=== PATIENT | male | born 1945 | race Two or more races ===

== ENCOUNTER 2019-12-17 07:31 | Day surgery (SDC) | payer MEDICARE ==
[2019-12-12 08:09] LABS: BASOPHILS % (AUTO) 1.3 % (0.0-2.0); HEMOGLOBIN 15.2 G/DL (14.2-18.0); LYMPHOCYTES % (AUTO) 30.6 % (20.0-45.0); MEAN CORPUSCULAR VOLUME 87 FL (80-99); MONOCYTES % (AUTO) 9.7 % (1.0-10.0); NEUTROPHILS % (AUTO) 53.4 % (45.0-75.0); PLATELET COUNT 219 K/UL (150-450); RED BLOOD COUNT 5.06 M/UL (4.70-6.10); RED CELL DISTRIBUTION WIDTH 11.5 % (11.6-14.8); WHITE BLOOD COUNT 7.3 K/UL (4.8-10.8)
[2019-12-12 08:19] LABS: ANION GAP 11 mmol/L (5-15); BLOOD UREA NITROGEN 11 mg/dL (7-18); CALCIUM 8.8 MG/DL (8.5-10.1); CARBON DIOXIDE 27 MMOL/L (21-32); CHLORIDE 108 MMOL/L (98-107); CREATININE 0.8 MG/DL (0.55-1.30); POTASSIUM 4.3 MMOL/L (3.5-5.1); SODIUM 146 MMOL/L (136-145)
--- NOTE | 2019-12-12 09:57 | Opthalmology H&P ---
Ophthalmology H&P H&P Chief Complaint: decreased vision in left eye HPI Vision Affects Ability to: read Past Ocular History: retinal problems - PDR/ME OU, other - Pterygium OS HPI Narrative Blurry vision Exam Visual Acuity: OD 20/50 OS 20/125 Tension: OD 11 OS 11 Eye Exam: normal OU: palpebral fissure-width, marginal reflex distance, levator function, corneas, anterior chambers, fundus exam; findings: external exam - Pterygium OS, lens - NS/CC Cataracts OU Assessment/Plan Treatment Plan: cataract extraction w/ lens implant Goals of Treatment: improvement of vision, enhance quality of life Attestation Attestation The risks and benefits of the surgery as well as alternative procedures were explained to the patient in detail. Satinder Plummer MD December 12, 2019 09:57
--- NOTE | 2019-12-12 09:59 | Pre-Procedure Note/Attestation ---
Pre-Procedure Note/Attestation Complete Prior to Procedure Planned Procedure: left Procedure Narrative: Cataract extraction with IOL implant left eye Indications for Procedure Pre-Operative Diagnosis: Nuclear sclerotic/ cortical cataract left eye Attestation I attest that I discussed the nature of the procedure; its benefits; risks and complications; and alternatives (and the risks and benefits of such alternatives ), prior to the procedure, with the patient (or the patient's legal service center representative). I attest that, if there was a reasonable possibility of needing a blood transfusion, the patient (or the patient's legal service center representative) was given the [facility] standardized written summary, pursuant to the [address] Blood Safety Act ([place] Health and Safety Code # 1645, as amended). I attest that I re-evaluated the patient just prior to the surgery and that there has been no change in the patient's H&P, except as documented below: Satinder Plummer MD December 12, 2019 09:59
--- NOTE | 2019-12-12 16:30 | Pre-op HX & Phy Repo 2 SIG ---
DATE OF ADMISSION: 12/17/2019 PRESURGICAL INTERNAL MEDICINE HISTORY AND PHYSICAL ANTICIPATED DATE OF SURGERY: Surgery is scheduled for Tuesday, December 17, 2019. SURGEON: Satinder Plummer MD. PROCEDURE: Cataract extraction of left eye with intraocular lens implant. The patient was evaluated on December 12, 2019, at Outpatient Procedure, [facility]. PAST MEDICAL HISTORY AND REVIEW OF SYSTEMS: Remarkable for hypertension, type 2 diabetes. Denies history of chest pain, palpitation, or heart attack. No history of stroke or seizures. Denies history of respiratory problem, asthma, or bronchitis. Denies history of GI problem. No ulcer or hernia. No history of hepatitis. Denies history of renal failure or prostate problem. No history of anemia or thyroid problem. PAST SURGICAL HISTORY: Right shoulder fracture traumatic. FAMILY HISTORY: Father from heart attack and mother of complication of bowel obstruction. ALLERGIES: Not known. PRESENT MEDICATIONS: Glipizide, metformin, Giardia, atorvastatin, baby aspirin, and blood pressure medication unable to produce. HABITS: Denies history of smoke. Alcohol occasional. No street drugs. PHYSICAL EXAMINATION: GENERAL: Alert, well-developed, well-nourished male in his 70s, in no acute distress. VITAL SIGNS: Blood pressure 147/85, temperature 97.5, heart rate is 88, O2 saturation 98% on room air. SKIN: Clear, warm. No diaphoresis or rashes. LYMPHATICS: Lymph nodes not enlarged. HEENT: Head normocephalic and atraumatic. Ears, clear, no discharge. Nose clear, no discharge. Mouth, clear and moist, no dentures. Eyes, full description per Dr. Satinder Plummer. NECK: Supple. No jugular venous distention. Carotids artery +2. Trachea midline. CHEST: No deformity or asymmetry. LUNGS: Clear to auscultation and percussion. No rales or rhonchi. HEART: Sinus. No ectopy. No murmur. No S3, S4. ABDOMEN: Soft, benign. Liver and spleen not enlarged. No rebound. EXTREMITIES: No edema. No varicose vein. No deformity. NERVOUS SYSTEM: No asymmetry. II through XII in normal limit. No nystagmus. 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 LABORATORY WORK: CBC in normal limit. Blood sugar 153. BUN and creatinine normal. IMPRESSION: 1. Nuclear sclerotic cataract, left eye. 2. Diabetes mellitus, type 2. 3. Hypertension, controlled. PLAN: Cataract extraction of left eye with intraocular lens implant per Dr. Satinder Plummer. CONCLUSION: The patient is a 74-year-old male who has history of hypertension and type 2 diabetes. 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 The patient is asymptomatic. The patient is to be NPO after midnight, Tuesday, December 17, 2019. The patient's condition optimized for surgery. Thank you very much, Dr. Plummer, for privilege to participate in presurgical care of this interesting patient. Francisco Velasco M.D. DR: Sean JOB#: [id number] CC:
[~2019-12-17] VITALS: Ht 170.2 cm; Wt 81.6 kg
[2019-12-17] VITALS (7 sets, daily range): BP systolic 133–154; BP diastolic 70–88
[~2019-12-17 07:31] MED LIST: ASPIR 8181 MG ORAL; ATORVASTATIN CA20 MG ORAL; Akten 3.5% 1ml Btl LEFT EYE ONE; BSS 15ml BTL ONE; BSS 500ml btl ONE; Bupivacaine 0.75% 30ml vial INJ ONE; Carbachol 0.01% Op Soln 1.5ml vial ONE; Dexamethasone 4mg/ml vial ONE; EPINEPHrine 1mg/1ml Amp ONE; GLIPIZIDE ER10 MG PO; Lidocaine 2% MPF 5ml Vial INJ ONE; Lidocaine 4% Amp 5ml ONE; METFORMIN HCL1000 M1 ORAL; Pilocarpine 1% Opth 15ml Soln ONE; Polysporin Oint 15gm TOPIC ONE; Povidone-Iodine 5% opth solution ONE; Proparacaine 0.5% Opth Soln 15ml LEFT EYE ONE; Sodium Hyaluronate 10 mg/ml 0.85ml ONE; Tetracaine 0.5% Opth 4ml Soln LEFT EYE ONE; acetaZOLAMIDE 500mg Inj ONE; jardiance PO; prednisoLONE acetate 1% Opth Susp 1ml ONE
[2019-12-17] MEDS: Tropicamide 1% Opth 15ml Soln LEFT EYE SCH ×3 (07:55→08:10)
[2019-12-17] MEDS: Cyclopentolate 1% Opth Sol 2ml LEFT EYE SCH ×3 (07:57→08:10)
[2019-12-17] MEDS: Diclofenac Sod 0.1% Op Soln LEFT EYE SCH ×2 (07:57→08:06)
[2019-12-17] MEDS: Phenylephrine 10% Opth Soln 5ml LEFT EYE SCH ×3 (07:57→08:10)
[2019-12-17] MEDS: Tobramycin Op Soln 0.3% 5ml LEFT EYE SCH ×3 (07:57→08:10)
[2019-12-17] MEDS ORDERED: LR 1000ml 1,000 ML IVLG SCH (08:28)
--- NOTE | 2019-12-17 08:28 | Anethesia Preoperative Eval ---
Anesthesia Pre-op PMH/ROS General Date of Evaluation: December 17, 2019 Time of Evaluation: 08:25 Anesthesiologist: Awais ASA Score: ASA 3 Mallampati Score Class I : Soft palate, uvula, fauces, pillars visible Class II: Soft palate, uvula, fauces visible Class III: Soft palate, base of uvula visible Class IV: Only hard plate visible Mallampati Classification: Class II Surgeon: Kavitha Diagnosis: L eye cataract Surgical Procedure: Cataract extraction Anesthesia History: none Family History: no anesthesia problems Allergies: Coded Allergies: No Known Allergies (Unverified , 12/12/19) Medications: see eMAR Patient NPO?: Yes Past Medical History Cardiovascular: Reports: HTN; Denies: CAD, [place], valve dz, arrhythmia, other Pulmonary: Denies: asthma, COPD, KELSEY, other Gastrointestinal/Genitourinary: Reports: GERD; Denies: CRI, ESRD, other Neurologic/Psychiatric: Denies: dementia, CVA, depression/anxiety, TIA, other Endocrine: Reports: DM - stable on pills; Denies: hypothyroidism, steroids, other HEENT: Reports: cataract (L), cataract (R), glaucoma Hematology/Immune: Denies: anemia, DVT, bleeding disorder, other Musculoskeletal/Integumentary: Denies: OA, RA, DJD, DDD, edema, other PMH Narrative: as above PSxH Narrative: Shoulder Sx Anesthesia Pre-op Phys. Exam Physician Exam Last Vital Signs Date Time Temp Pulse Resp B/P (MAP) Pulse Ox O2 Delivery O2 Flow Rate FiO2 12/17/19 08:03 97.4 86 20 141/88 95 Room Air Constitutional: NAD Neurologic: CN 2-12 intact Cardiovascular: RRR, no M/R/G Respiratory: CTA Gastrointestinal: S/NT/ND Airway Exam Mallampati Score: Class II MO: limited Neck: stiff ROM: limited Teeth: missing Dentures: no upper, no lower Anesthesia Pre-op A/P Labs see chart Studies Pre-op Studies: EKG - SR Risk Assessment & Plan Assessment: ASA 3 Plan: MAC Status Change Before Surgery: No Pre-Antibiotics Drug: none Romaine Underwood MD December 17, 2019 08:28
[2019-12-17] MEDS ORDERED: fentaNYL 100 mcg/2 mL IV PRN (08:30)
[2019-12-17] MEDS ORDERED: EPINEPHrine 1mg/1ml Amp ONE (08:57)
[2019-12-17] MEDS ORDERED: BSS 15ml BTL ONE (08:58)
[2019-12-17] MEDS ORDERED: Sodium Hyaluronate 10 mg/ml 0.85ml ONE (08:58)
[2019-12-17] MEDS ORDERED: Povidone-Iodine 5% opth solution ONE (08:58)
[2019-12-17] MEDS ORDERED: BSS 500ml btl ONE (08:58)
[2019-12-17] MEDS ORDERED: Sterile Water Irrig 1000ml IRRIG ONE (09:00)
[2019-12-17] MEDS ORDERED: LR 1000ml ONE (09:00)
[2019-12-17] MEDS ORDERED: NS Irrig 1000ml ONE (09:00)
--- NOTE | 2019-12-17 10:15 | Immediate Post-Op Evaluation ---
Immediate Post-Op Evalulation Immediate Post-Op Evalulation Procedure: L eye cataract extraction with IOL Date of Evaluation: December 17, 2019 Time of Evaluation: 10:14 IV Fluids: 400 Blood Products: none Estimated Blood Loss: none Urinary Output: none Blood Pressure Systolic: 148 Blood Pressure Diastolic: 72 Pulse Rate: 86 Respiratory Rate: 20 O2 Sat by Pulse Oximetry: 99 Temperature (Fahrenheit): 97.8 Pain Score (1-10): 1 Nausea: No Vomiting: No Complications none Patient Status: awake, patent, none Hydration Status: adequate Romaine Underwood MD December 17, 2019 10:15
--- NOTE | 2019-12-17 10:56 | 48 Hour Post Anesthesia Eval ---
Post Anesthesia Evaluation Procedure: L eye cataract extraction with IOL Date of Evaluation: December 17, 2019 Time of Evaluation: 10:55 Blood Pressure Systolic: 128 0: 76 Pulse Rate: 68 Respiratory Rate: 18 Temperature (Fahrenheit): 97.6 O2 Sat by Pulse Oximetry: 98 Airway: patent Nausea: No Vomiting: No Pain Intensity: 1 Hydration Status: adequate Cardiopulmonary Status: stable Mental Status/LOC: patient returned to baseline Follow-up Care/Observations: n/a Post-Anesthesia Complications: none Follow-up care needed: ready to discharge Romaine Underwood MD December 17, 2019 10:56
--- NOTE | 2019-12-18 09:53 | Brief Operative Note ---
Immediate Post Operative Note Operative Note Chief Complaint: Blurry Vision Pre-op Diagnosis: Nuclear sclerotic/ cortical cataract left eye Procedure: Cataract extraction with IOL implant left eye Post-op Diagnosis: Pseudophakia OS Findings: consistent w/pre-op dx studies Surgeon: Satinder Plummer MD Anesthesiologist: Romaine Underwood MD Anesthesia: MAC Specimen: none Complications: none Condition: stable Fluids: LR Estimated Blood Loss: none Drains: none Implant(s) used?: Yes - IOL-OS Satinder Plummer MD December 18, 2019 09:53
--- NOTE | 2019-12-18 09:58 | Operative Note - PDOC ---
Operative Note Operative Note Date of Operation/Procedure: December 17, 2019 Chief Complaint: Blurry Vision Pre-op Diagnosis: Nuclear sclerotic/ cortical cataract left eye Procedure: Cataract extraction with IOL implant left eye Post-op Diagnosis: Pseudophakia OS Operative Findings: consistent w/pre-op dx studies Surgeon: Satinder Plummer MD Anesthesiologist: Romaine Underwood MD Anesthesia: MAC Specimen: none Complications: none Condition: stable Fluids: LR Estimated Blood Loss: none Drains: none Implant(s) used?: Yes - IOL-OS Indications for Procedure Nuclear sclerotic/ Cortical cataract left eye Description of Procedure This patient has been complaining of a visually significant cataract in the left eye with the best corrected visual acuity of 20/160 under moderate glare conditions worse. The patient complains of difficulties with glare in performing activities of daily living and wants to manage personal affairs with comfort and accuracy and see well enough to move with safety at home and outdoors independently. The risks, benefits and alternatives of the procedure were discussed with the patient in the office prior to scheduling surgery. All questions from the patient were answered after the surgical procedure was explained in detail. The risks of the procedure as explained to the patient include, but are not limited to, pain, infection, bleeding, loss of vision, retinal detachment, need for further surgery, loss of lens nucleus, double vision, etc. Alternative procedures were discussed which include, to do nothing or seek a second opinion. Informed consent for this procedure was obtained from the patient. The patient was referred to a primary care physician for a cardiopulmonary clearance prior to surgery, after proper evaluation was done patient was properly scheduled for outpatient surgery. The patient was brought to the operating room where the anesthesiologist established I.V. lines and cardiac monitoring leads. Mild intravenous sedation was administered. The patient was then prepared with a 5% solution of povidone -iodine to the conjunctival fornix and lashes, and a 5% solution of povidone- iodine to the lids and periorbital skin. The patient was then draped in the usual sterile fashion. A lid speculum was then placed in the operative eye. A keratome blade was then used to create a biplanar incision into the anterior chamber. Viscoelastics was then instilled into the anterior chamber. A capsulorrhexis was then fashioned with an utrata forceps A G 27 cannula was used to hydrodissect and hydro delineate the lens nucleus. Paracentesis incision was made at 3 o'clock with sharp blade. The phacoemulsification unit, after being properly adjusted and tested, was then used to emulsify the nucleus followed by aspiration and irrigation of residual cortical material. Healon was then instilled into the anterior chamber. The corneal wound was then enlarged to the size of the optic with the manasa keratome blade. The intraocular lens was then inspected for right power and size and thought to be satisfactory. Then the lens was gently placed in the capsular bag. Positioning within the capsular bag was confirmed by direct visualization. Optic centration was accomplished with a Sinskey hook. Viscoelastics was removed from the anterior chamber using the irrigation and aspiration unit. The corneal wound was then tested for leaks and none were found. The lid speculum were then removed. Sponge and needle counts were correct. An eye patch and shield were placed over the operative eye. The patient was taken to the recovery room in stable condition. There were no complications. The patient tolerated the procedure well. The patient was then transferred to the ambulatory surgery unit in stable and satisfactory condition , was given detailed written instructions and asked to follow up in the office the next day. Satinder Plummer MD December 18, 2019 09:58
== END 2019-12-17 11:05 | disposition home or self-care (01) ==
LOC: SUR 07:31
DX: H25.12 Age-related nuclear cataract, left eye (principal); H25.012 Cortical age-related cataract, left eye; H11.002 Unspecified pterygium of left eye; I10 Essential (primary) hypertension; E11.9 Type 2 diabetes mellitus without complications; Z79.82 Long term (current) use of aspirin; Z79.899 Other long term (current) drug therapy; Z79.84 Long term (current) use of oral hypoglycemic drugs; K21.9 Gastro-esophageal reflux disease without esophagitis
CPT/HCPCS: 36415; 66984; 80048; 85025; 85610; 85730; 93005; 94003; J0171; J1100; J2704; J3370; J7120; V2632; 94150

== ENCOUNTER 2020-02-04 05:58 | Day surgery (SDC) | payer MEDICARE ==
[2020-01-28 10:31] LABS: BASOPHILS % (AUTO) 0.8 % (0.0-2.0); EOSINOPHILS % (AUTO) 1.5 % (0.0-3.0); HEMATOCRIT 44.6 % (42.0-52.0); HEMOGLOBIN 14.5 G/DL (14.2-18.0); LYMPHOCYTES % (AUTO) 19.2 % (20.0-45.0); MEAN CORPUSCULAR VOLUME 92 FL (80-99); MONOCYTES % (AUTO) 5.9 % (1.0-10.0); NEUTROPHILS % (AUTO) 72.6 % (45.0-75.0); PLATELET COUNT 176 K/UL (150-450); RED BLOOD COUNT 4.83 M/UL (4.70-6.10); RED CELL DISTRIBUTION WIDTH 11.7 % (11.6-14.8); WHITE BLOOD COUNT 10.8 K/UL (4.8-10.8)
[2020-01-28 10:40] LABS: ANION GAP 10 mmol/L (5-15); BLOOD UREA NITROGEN 15 mg/dL (7-18); CALCIUM 8.6 MG/DL (8.5-10.1); CARBON DIOXIDE 27 MMOL/L (21-32); CHLORIDE 102 MMOL/L (98-107); POTASSIUM 4.1 MMOL/L (3.5-5.1); SODIUM 139 MMOL/L (136-145)
[2020-01-28 10:42] LABS: INR 1.1 (0.9-1.1)
--- NOTE | 2020-01-31 11:51 | Opthalmology H&P ---
Ophthalmology H&P H&P Chief Complaint: decreased vision in right eye HPI Vision Affects Ability to: focus/use eyes together, manage personal affairs Past Ocular History: retinal problems - PDR/ME OU HPI Narrative Blurry vision Exam Visual Acuity: OD 20/125 OS 20/80 Tension: OD 13 OS 14 Eye Exam: normal OU: external exam, palpebral fissure-width, marginal reflex distance, levator function, corneas, anterior chambers, lens - NS/CC CAT OD - PSEUDO OS; findings: lens - NS/CC CAT OD -PSEUDO OS, fundus exam - PDR/ME OU Assessment/Plan Treatment Plan: cataract extraction w/ lens implant Goals of Treatment: improvement of vision, enhance quality of life Attestation Attestation The risks and benefits of the surgery as well as alternative procedures were explained to the patient in detail. Satinder Plummer MD Jan 31, 2020 11:51
--- NOTE | 2020-01-31 11:53 | Pre-Procedure Note/Attestation ---
Pre-Procedure Note/Attestation Complete Prior to Procedure Planned Procedure: right Procedure Narrative: Cataract extraction with IOL implant right eye Indications for Procedure Pre-Operative Diagnosis: Cortical Nuclear sclerotic cataract right eye Attestation I attest that I discussed the nature of the procedure; its benefits; risks and complications; and alternatives (and the risks and benefits of such alternatives ), prior to the procedure, with the patient (or the patient's legal client care representative). I attest that, if there was a reasonable possibility of needing a blood transfusion, the patient (or the patient's legal client care representative) was given the [facility] standardized written summary, pursuant to the [address] Blood Safety Act ([place] Health and Safety Code # 1645, as amended). I attest that I re-evaluated the patient just prior to the surgery and that there has been no change in the patient's H&P, except as documented below: Satinder Plummer MD Jan 31, 2020 11:53
--- NOTE | 2020-01-31 12:45 | Pre-op HX & Phy Repo 2 SIG ---
DATE OF ADMISSION: 02/04/2020 PRESURGICAL INTERNAL MEDICINE HISTORY AND PHYSICAL DATE OF EVALUATION: 01/31/2020. REASON FOR EVALUATION: I was asked by Dr. Satinder Plummer to see this 74-year-old male who is going for elective surgery on the right eye, Tuesday, February 04, 2020. The patient was evaluated in the outpatient procedure department of [facility]. PAST MEDICAL HISTORY: Remarkable for history of hypertension, history of diabetes type 2, and history of hyperlipidemia. No history of stroke or seizures. Denies history of lung problem, asthma, and bronchitis. No history of chest pain, palpitation, or heart attack. No history of GI bleeding, ulcer disease, or acid reflux. Denies history of hepatitis. No history of renal failure, anemia, or thyroid problem. PAST SURGICAL HISTORY: Left eye cataract intraocular lens implant. FAMILY HISTORY: Mother of old age at 93 after some abdominal surgery unknown. Father from heart attack. PRESENT MEDICATIONS: Include glipizide, lisinopril, baby aspirin, atorvastatin, and Giardia. ALLERGIES: Not known. HABITS: The patient smoked cigar few, last time 15 years ago. Alcohol occasionally. No street drugs. PHYSICAL EXAMINATION: GENERAL: Alert, well-developed and well-nourished male in his 70s, in no acute distress. VITAL SIGNS: Blood pressure 165/87, temperature 97.5, pulse 85 and regular, respirations 18, and O2 saturation 96% on room air. SKIN: Warm and dry. No ulcerations. No rashes. LYMPHATICS: Lymph nodes not enlarged. HEENT: Head is normocephalic and atraumatic. Ears, clear. Eyes, full description per Dr. Satinder Plummer. Mouth, clear and moist. No dentures. NECK: Supple. No jugular venous distention. Carotids artery +2. Trachea midline. CHEST: No deformity or asymmetry. LUNGS: Clear to auscultation and percussion. No rales or rhonchi. HEART: Sinus rhythm. Regular. No ectopy. No murmur. No S3, S4. ABDOMEN: Soft, benign. No rebound. No palpable mass. EXTREMITIES: No peripheral edema. No deformity. No varicose vein. No calf tenderness. GENITOURINARY: No dysuria. No CVA tenderness. NEUROLOGIC: No tremor. No nystagmus. No asymmetry. DIAGNOSTIC DATA: EKG, normal sinus rhythm, 85 per minute; left axis deviation; inferior MS, probably old. The patient is asymptomatic. The patient to be NPO after midnight, Tuesday. Lab work pending. Coronavirus swab obtained. IMPRESSION: 1. Nuclear sclerotic cataract, right eye. 2. Hypertension, controlled. 3. Diabetes mellitus, type 2. 4. Hyperlipidemia. PLAN: Cataract extraction right eye with intraocular lens implant per Dr. Satinder Plummer. CONCLUSION: The patient is a 74-year-old male with history of type 2 diabetes and hypertension, both controlled. EKG showed left axis deviation, sinus rhythm and possible old inferior wall MS. The patient to be NPO prior to surgery. The patient's condition optimized for surgery. Thank you very much, Dr. Plummer, for privilege to participate in presurgical care of this interesting patient. Francisco Velasco M.D. DR: JAZMÍN JOB#: [id number] CC:
[~2020-02-04] VITALS: Ht 170.2 cm; Wt 86.2 kg
[2020-02-04] VITALS (8 sets, daily range): BP systolic 142–157; BP diastolic 60–88
[~2020-02-04 05:58] MED LIST changes: -Akten 3.5% 1ml Btl LEFT EYE ONE; -BSS 15ml BTL ONE; -BSS 500ml btl ONE; -Bupivacaine 0.75% 30ml vial INJ ONE; -Carbachol 0.01% Op Soln 1.5ml vial ONE; -Dexamethasone 4mg/ml vial ONE; -EPINEPHrine 1mg/1ml Amp ONE; -Lidocaine 2% MPF 5ml Vial INJ ONE; -Lidocaine 4% Amp 5ml ONE; -Pilocarpine 1% Opth 15ml Soln ONE; -Polysporin Oint 15gm TOPIC ONE; -Povidone-Iodine 5% opth solution ONE; -Proparacaine 0.5% Opth Soln 15ml LEFT EYE ONE; -Sodium Hyaluronate 10 mg/ml 0.85ml ONE; -Tetracaine 0.5% Opth 4ml Soln LEFT EYE ONE; -acetaZOLAMIDE 500mg Inj ONE; -prednisoLONE acetate 1% Opth Susp 1ml ONE
[2020-02-04] MEDS: Tropicamide 1% Opth 15ml Soln RIGHT EYE SCH ×3 (06:22→06:42)
[2020-02-04] MEDS: Phenylephrine 10% Opth Soln 5ml RIGHT EYE SCH ×3 (06:22→06:42)
[2020-02-04] MEDS: Cyclopentolate 1% Opth Sol 2ml RIGHT EYE SCH ×3 (06:22→06:42)
[2020-02-04] MEDS: Diclofenac Sod 0.1% Op Soln RIGHT EYE SCH ×3 (06:22→06:42)
[2020-02-04] MEDS: Tobramycin Op Soln 0.3% 5ml RIGHT EYE SCH ×3 (06:22→06:42)
[2020-02-04] MEDS ORDERED: Akten 3.5% 1ml Btl RIGHT EYE ONE (07:00)
[2020-02-04] MEDS ORDERED: Tetracaine 0.5% Opth 4ml Soln RIGHT EYE ONE (07:00)
[2020-02-04] MEDS ORDERED: Maxitrol Opth Oint 3.5gm ONE (07:00)
[2020-02-04] MEDS ORDERED: Proparacaine 0.5% Opth Soln 15ml RIGHT EYE ONE (07:00)
[2020-02-04] MEDS ORDERED: prednisoLONE acetate 1% Opth Susp 1ml ONE (07:00)
[2020-02-04] MEDS ORDERED: Pilocarpine 1% Opth 15ml Soln ONE (07:00)
[2020-02-04] MEDS ORDERED: Carbachol 0.01% Op Soln 1.5ml vial ONE (07:09)
[2020-02-04] MEDS ORDERED: EPINEPHrine 1mg/1ml Amp ONE (07:09)
[2020-02-04] MEDS ORDERED: BSS 15ml BTL ONE (07:10)
[2020-02-04] MEDS ORDERED: Povidone-Iodine 5% opth solution ONE (07:10)
[2020-02-04] MEDS ORDERED: acetaZOLAMIDE 500mg Inj ONE (07:10)
[2020-02-04] MEDS ORDERED: BSS 500ml btl ONE (07:10)
[2020-02-04] MEDS ORDERED: fentaNYL 100 mcg/2 mL IV ONE (07:15)
[2020-02-04] MEDS ORDERED: LR 1000ml 1,000 ML IVLG SCH (07:27)
--- NOTE | 2020-02-04 07:27 | Anethesia Preoperative Eval ---
Anesthesia Pre-op PMH/ROS General Date of Evaluation: Feb 04, 2020 Time of Evaluation: 07:24 Anesthesiologist: Kj ASA Score: ASA 3 Mallampati Score Class I : Soft palate, uvula, fauces, pillars visible Class II: Soft palate, uvula, fauces visible Class III: Soft palate, base of uvula visible Class IV: Only hard plate visible Mallampati Classification: Class II Surgeon: Kavitha Diagnosis: R eye cataract Surgical Procedure: Cataract extraction Anesthesia History: none Social History: smoking - h/o Family History: no anesthesia problems Allergies: Coded Allergies: No Known Allergies (Unverified , 02/04/20) Medications: see eMAR Patient NPO?: Yes Past Medical History Cardiovascular: Reports: HTN - Stable; Denies: CAD, [place], valve dz, arrhythmia, other Pulmonary: Denies: asthma, COPD, KELSEY, other Gastrointestinal/Genitourinary: Reports: GERD - mild; Denies: CRI, ESRD, other Neurologic/Psychiatric: Denies: dementia, CVA, depression/anxiety, TIA, other Endocrine: Reports: DM - stable on pills; Denies: hypothyroidism, steroids, other HEENT: Reports: cataract (L), cataract (R), glaucoma Hematology/Immune: Denies: anemia, DVT, bleeding disorder, other Musculoskeletal/Integumentary: Reports: OA; Denies: RA, DJD, DDD, edema, other PMH Narrative: as above PSxH Narrative: Cataract shoulder Sx Anesthesia Pre-op Phys. Exam Physician Exam Last Vital Signs Date Time Temp Pulse Resp B/P (MAP) Pulse Ox O2 Delivery O2 Flow Rate FiO2 02/04/20 06:29 Room Air 02/04/20 06:26 97.5 89 18 151/85 97 Constitutional: NAD Neurologic: CN 2-12 intact Cardiovascular: RRR, no M/R/G Respiratory: CTA Gastrointestinal: S/NT/ND Airway Exam Mallampati Score: Class II MO: full ROM: limited Teeth: missing Dentures: no upper, no lower Anesthesia Pre-op A/P Labs see chart Studies Pre-op Studies: EKG - NSR Risk Assessment & Plan Assessment: ASA 3 Plan: MAC Status Change Before Surgery: No Pre-Antibiotics Drug: none Romaine Underwood MD Feb 04, 2020 07:27
[2020-02-04] MEDS ORDERED: fentaNYL 100 mcg/2 mL IV PRN (07:30)
[2020-02-04] MEDS ORDERED: LR 1000ml ONE ×2 (08:00)
[2020-02-04] MEDS ORDERED: NS Irrig 1000ml ONE (08:00)
--- NOTE | 2020-02-04 08:45 | Immediate Post-Op Evaluation ---
Immediate Post-Op Evalulation Immediate Post-Op Evalulation Procedure: R eye cataract extraction with IOL Date of Evaluation: Feb 04, 2020 Time of Evaluation: 08:44 IV Fluids: 500 Blood Products: none Estimated Blood Loss: none Urinary Output: none Blood Pressure Systolic: 155 Blood Pressure Diastolic: 78 Pulse Rate: 82 Respiratory Rate: 20 O2 Sat by Pulse Oximetry: 99 Temperature (Fahrenheit): 98.5 Pain Score (1-10): 1 Nausea: No Vomiting: No Complications none Patient Status: awake, patent, none Romaine Underwood MD Feb 04, 2020 08:45
--- NOTE | 2020-02-04 09:47 | 48 Hour Post Anesthesia Eval ---
Post Anesthesia Evaluation Procedure: R eye cataract extraction with IOL Date of Evaluation: Feb 04, 2020 Time of Evaluation: 09:46 Blood Pressure Systolic: 155 0: 76 Pulse Rate: 82 Respiratory Rate: 22 Temperature (Fahrenheit): 97.6 O2 Sat by Pulse Oximetry: 98 Airway: patent Nausea: No Vomiting: No Pain Intensity: 1 Hydration Status: adequate Cardiopulmonary Status: stable Mental Status/LOC: patient returned to baseline Follow-up Care/Observations: n/a Post-Anesthesia Complications: none Follow-up care needed: ready to discharge Romaine Underwood MD Feb 04, 2020 09:47
--- NOTE | 2020-02-04 13:33 | Brief Operative Note ---
Immediate Post Operative Note Operative Note Chief Complaint: Blurry vision Pre-op Diagnosis: Cortical Nuclear sclerotic cataract right eye Procedure: Cataract extraction with IOL implant right eye Post-op Diagnosis: Pseudophakia OD Findings: consistent w/pre-op dx studies Surgeon: Satinder Plummer MD Anesthesiologist: Romaine Underwood MD Anesthesia: MAC Specimen: none Complications: none Condition: stable Fluids: LR Estimated Blood Loss: none Drains: none Implant(s) used?: Yes - IOL-OD Satinder Plummer MD Feb 04, 2020 13:33
--- NOTE | 2020-02-04 13:37 | Operative Note - PDOC ---
Operative Note Operative Note Date of Operation/Procedure: Feb 04, 2020 Chief Complaint: Blurry vision Pre-op Diagnosis: Cortical Nuclear sclerotic cataract right eye Procedure: Cataract extraction with IOL implant right eye Post-op Diagnosis: Pseudophakia OD Operative Findings: consistent w/pre-op dx studies Surgeon: Satinder Plummer MD Anesthesiologist: Romaine Underwood MD Anesthesia: MAC Specimen: none Complications: none Condition: stable Fluids: LR Estimated Blood Loss: none Drains: none Implant(s) used?: Yes - IOL-OD Indications for Procedure Cortical nuclear sclerotic cataract right eye Description of Procedure This patient has been complaining of a visually significant cataract in the right eye with the best corrected visual acuity of 20/125-2 and under moderate glare conditions worse. The patient complains of difficulties with glare in performing activities of daily living and wants to manage personal affairs with comfort and accuracy and see well enough to move with safety at home and outdoors. The risks, benefits and alternatives of the procedure were discussed with the patient in the office prior to scheduling surgery. All questions from the patient were answered after the surgical procedure was explained in detail. The risks of the procedure as explained to the patient include, but are not limited to, pain, infection, bleeding, loss of vision, retinal detachment, need for further surgery, loss of lens nucleus, double vision, etc. Alternative procedures were discussed which include, to do nothing or seek a second opinion. Informed consent for this procedure was obtained from the patient. The patient was referred to a primary care physician for a cardiopulmonary clearance prior to surgery, after proper evaluation was done patient was properly scheduled for outpatient surgery. The patient was brought to the operating room where the anesthesiologist established I.V. lines and cardiac monitoring leads. Mild intravenous sedation was administered. The patient was then prepared with a 5% solution of povidone -iodine to the conjunctival fornix and lashes, and a 5% solution of povidone- iodine to the lids and periorbital skin. The patient was then draped in the usual sterile fashion. A lid speculum was then placed in the operative eye. A keratome blade was then used to create a biplanar incision into the anterior chamber. Viscoelastics was then instilled into the anterior chamber. A capsulorrhexis was then fashioned with an utrata forceps followed by hydrodissection and hydro delineation of the lens nucleus. Paracentesis incision was made at 3 o'clock with sharp blade. The phacoemulsification unit, after being properly adjusted and tested, was then used to emulsify the nucleus followed by aspiration and irrigation of residual cortical material. Healon was then instilled into the anterior chamber. The corneal wound was then enlarged to the size of the optic with the manasa keratome blade. The intraocular lens was then inspected for right power and size and thought to be satisfactory. Then the lens was gently placed in the capsular bag. Positioning within the capsular bag was confirmed by direct visualization. Optic centration was accomplished with a Sinskey hook. Viscoelastics was removed from the anterior chamber using the irrigation and aspiration unit. The corneal wound was then tested for leaks and none were found. The lid speculum were then removed. Sponge and needle counts were correct. An eye patch and shield were placed over the operative eye. The patient was taken to the recovery room in stable condition. There were no complications. The patient tolerated the procedure well. The patient was then transferred to the ambulatory surgery unit in stable and satisfactory condition , was given detailed written instructions and asked to follow up in the office the next day. Satinder Plummer MD Feb 04, 2020 13:37
== END 2020-02-04 10:15 | disposition home or self-care (01) ==
LOC: SUR 05:58
DX: H25.011 Cortical age-related cataract, right eye (principal); H25.11 Age-related nuclear cataract, right eye; I10 Essential (primary) hypertension; K21.9 Gastro-esophageal reflux disease without esophagitis; E11.9 Type 2 diabetes mellitus without complications; M19.90 Unspecified osteoarthritis, unspecified site; Z87.891 Personal history of nicotine dependence; E78.5 Hyperlipidemia, unspecified; Z79.899 Other long term (current) drug therapy; Z79.82 Long term (current) use of aspirin
CPT/HCPCS: 36415; 66984; 80048; 85025; 85610; 85730; 94003; J0171; J1100; J2704; J3010; J3370; J7120; V2632; 94150